=== PATIENT | male | born 1955 | race Caucasian/White ===

== ENCOUNTER → 2024-03-02 | Outpatient (CLI) | payer BC ==
--- NOTE | 2024-03-02 12:57 | XR ---
EXAMINATION TYPE: XR chest 2V DATE OF EXAM: 03/02/2024 12:53 PM COMPARISON: None CLINICAL INDICATION: Male, 68 years old with history of N17.9,E83.52, I10, D68.51; [facility] TECHNIQUE: XR chest 2V Frontal and lateral views of the chest. FINDINGS: Lungs/Pleura: There is no evidence of pleural effusion, focal consolidation, or pneumothorax. Pulmonary vascularity: Unremarkable. Heart/mediastinum: Cardiomediastinal silhouette is unremarkable. Musculoskeletal: No acute osseous pathology. IMPRESSION: No acute cardiopulmonary disease/process. [facility], , 03/02/2024 12:55 PM
== END | disposition home or self-care (01) ==
LOC: RADXRMAIN 12:36
PROVIDERS: ATTEND Internal Medicine Nephrology
DX: N17.9 Acute kidney failure, unspecified (principal); E83.52 Hypercalcemia; D68.51 Activated protein C resistance; I10 Essential (primary) hypertension
CPT/HCPCS: 71046

== ENCOUNTER → 2024-03-24 | Outpatient (CLI) | payer BC ==
--- NOTE | 2024-03-24 09:57 | US ---
EXAMINATION TYPE: US kidneys/renal and bladder DATE OF EXAM: 03/24/2024 COMPARISON: NONE CLINICAL INDICATION: Male, 68 years old with history of R37.9 HYPERGLYCEMIA, UNSPECIFIED; Hyperglycem ia TECHNIQUE: Grayscale imaging of the bilateral kidneys and urinary bladder: FINDINGS: EXAM MEASUREMENTS: Right Kidney: 12.9x4.8x6.4 cm Left Kidney: 12.5x5.2x5.6 cm Right Kidney: No hydronephrosis or masses seen Left Kidney: No hydronephrosis or masses seen Bladder: wnl Bilateral Jets seen: Yes IMPRESSION: No hydronephrosis. No specific abnormality seen. [facility], Workstation: [id number], 03/24/2024 9:54 AM
--- NOTE | 2024-03-24 10:28 | CT ---
EXAMINATION TYPE: CT chest wo con DATE OF EXAM: 03/24/2024 COMPARISON: Radiograph 03/02/2024 HISTORY: 68-year-old male R37.9, Coughing up blood TECHNIQUE: Contiguous axial scanning of the chest without IV contrast. Coronal/sagittal reconstructio ns performed. CT DLP: 589mGycm. Automatic exposure control utilized for a dose reduction. FINDINGS: Heart is normal size with trace pericardial fluid. Scattered three-vessel coronary artery calcificat ions are present. Aorta normal caliber with conventional arch vessel branching anatomy. No thoracic lymphadenopathy by CT size criteria. Breathing motion artifact throughout the lungs. No consolidation or pleural effusion is seen. Central airways are clear. No consolidation or pleural effusion. Visualized upper abdomen shows pronounced enlargement of the spleen but only partially visualized. Un derlying gallstones measuring up to 7 mm. There may be mild gallbladder wall thickening with increasi ng weight increased fluid status. Suggestion of mild anasarca change. Bones: Moderate degenerative disc disease lower thoracic spine with some anterior bridging endplate s pondylosis. IMPRESSION: 1. Breathing motion artifact. No acute pulmonary process seen. 2. Visualized upper abdomen with pronounced splenomegaly. Clinically correlate. 3. Cholelithiasis. 4. There appears to be mild anasarca change. Correlate with fluid status/third spacing. [facility], , 03/24/2024 10:26 AM
== END | disposition home or self-care (01) ==
LOC: RADUSWWP 08:07
PROVIDERS: ATTEND Internal Medicine Hematology & Oncology
DX: R73.9 Hyperglycemia, unspecified (principal); D64.9 Anemia, unspecified; D69.6 Thrombocytopenia, unspecified; I80.10 Phlebitis and thrombophlebitis of unspecified femoral vein; E78.5 Hyperlipidemia, unspecified; R16.1 Splenomegaly, not elsewhere classified; K80.20 Calculus of gallbladder without cholecystitis without obstruction; R60.1 Generalized edema
CPT/HCPCS: 71250; 76770

== ENCOUNTER → 2024-04-21 | Outpatient (CLI) | payer BC ==
[2024-04-21 10:56] LABS: African American GFR (CKD) 64 (>60 ml/min/1.73 sqM); Blood Urea Nitrogen 17 mg/dL (9-20); Non-African American GFR(CKD) 55 (>60 ml/min/1.73 sqM)
--- NOTE | 2024-04-21 12:51 | CT ---
EXAMINATION TYPE: CT abdomen pelvis w con DATE OF EXAM: 04/21/2024 12:20 PM COMPARISON: None CLINICAL INDICATION: Male, 68 years old with history of R13.10 DYSPHAGIA R16.1 SPLENOMEGALY; Splenome avila, anemia. No contrast filtration visible on 3 min, did do additional delay. TECHNIQUE: Axial CT abdomen pelvis w con;Sagittal and coronal reformats were created on a separate w orkstation. Contrast used:80 mL of Isovue 300 with IV Contrast, (none if empty) Oral contrast used: with Oral Contrast (none if empty) CT DLP: 2859.90 mGycm, Automated exposure control for dose reduction was used. FINDINGS: LOWER CHEST: Unremarkable ABDOMEN LIVER: Unremarkable GALLBLADDER AND BILE DUCTS: Layering increased densities within the lumen consistent with gallstones are present. PANCREAS: Unremarkable. SPLEEN: Markedly enlarged for size measuring up to 26.2 cm. ADRENAL GLANDS: Unremarkable. KIDNEYS AND URETERS: No evidence of hydronephrosis or renal calculus. The ureters are unremarkable. PELVIS BLADDER: Circumferential wall prominence of the urinary bladder. REPRODUCTIVE: Unremarkable. ABDOMEN & PELVIS STOMACH AND BOWEL: No evidence of bowel obstruction. PERITONEUM/RETROPERITONEUM: No evidence of pneumoperitoneum or free fluid. VASCULATURE: Mild atherosclerotic calcifications are present throughout the abdominal aorta and its b ranches. No evidence of aortic aneurysm. MUSCULOSKELETAL: No acute osseous abnormalities. Moderate disc degeneration changes are present throu ghout the thoracolumbar spine. LYMPH NODES: Scattered prominent lymph nodes including one near the left kidney is anterior left of t he aorta measuring 15 mm in short axis. Additionally gastrohepatic ligament measuring up to 15 mm. SOFT TISSUE/ABDOMINAL WALL: Fat-containing umbilical hernia. Fatty changes to the inguinal canals. IMPRESSION: 1. Markedly enlarged spleen measuring up to 26.2 cm. Additionally there is a few scattered retroperi toneal lymph nodes which are enlarged. Further workup recommended to exclude underlying malignancy/ly mphoma versus other. 2. Cholelithiasis. 3. Fat-containing umbilical hernia. 4. Circumferential wall prominence within the bladder correlate with urinalysis for cystitis. [facility], , 04/21/2024 12:49 PM
== END | disposition home or self-care (01) ==
LOC: RADCTMAIN 09:47
PROVIDERS: ATTEND Internal Medicine Hematology & Oncology
DX: K80.20 Calculus of gallbladder without cholecystitis without obstruction (principal); R16.1 Splenomegaly, not elsewhere classified; K42.9 Umbilical hernia without obstruction or gangrene; N30.80 Other cystitis without hematuria; D69.6 Thrombocytopenia, unspecified; I80.10 Phlebitis and thrombophlebitis of unspecified femoral vein; E78.5 Hyperlipidemia, unspecified; Z71.3 Dietary counseling and surveillance
CPT/HCPCS: 82565; 84520; 74177; 36415; Q9967

== ENCOUNTER 2024-05-11 11:01 | Day surgery (SDC) | payer BC ==
[~2024-05-11 11:01] MED LIST: LIDOCAINE 1% (10MG/ML) FOR IV START INTRADERMA PRN
[2024-05-11 11:32] VITALS: RESP 16; TEMP 98.5
[2024-05-11] MEDS: IV FLUID CONTINUATION 1,000 ML IV ONE (11:39)
[2024-05-11] MEDS: LACTATED RINGERS 1,000 ML IV SCH (11:42)
[2024-05-11] MEDS ORDERED: PHENYLEPHRINE 10 MG/ML VIAL ONE (12:04)
[2024-05-11] MEDS ORDERED: fentaNYL (PF) 50 MCG/ML 2 ML AMP ONE (12:04)
[2024-05-11] MEDS ORDERED: PROPOFOL 10 MG/ML 20 ML VIAL IV ONE (12:04)
[2024-05-11] MEDS: LIDOCAINE 2% INJ 20 MG/ML SQ ONE ×2 (12:07→12:16)
[2024-05-11 12:42] LABS: HCT 37.5 % (39.0-53.0); HGB 11.8 gm/dL (13.0-17.5); MCH 28.9 pg (25.0-35.0); MCHC 31.6 g/dL (31.0-37.0); MCV 91.5 fL (80.0-100.0); RDW 15.9 % (11.5-15.5); Reticulocyte % 2.6 % (0.5-2.0)
[2024-05-11 13:07] VITALS: BP 108/52; PULSE 65
[2024-05-11 13:13] LABS: Platelet Count 80 k/uL (150-450)
[2024-05-11 13:19] LABS: Neutrophils % (M) 27 %; Nucleated Red Blood Cells 0 /100 WBC (0-0); Total Cells Counted 200
--- NOTE | 2024-05-11 19:02 | OP ---
OPERATIVE REPORT DATE OF SERVICE : 05/11/2024 PROCEDURE: Bone marrow aspirate and biopsy. INDICATIONS: Hypercalcemia, splenomegaly and borderline-enlarged retroperitoneal nodes, rule out underlying lymphoproliferative neoplasm. DESCRIPTION OF PROCEDURE: After obtaining consent from the patient, the procedure was performed in the endoscopy suite under general sedation performed by anesthesia team. The patient was put in the left lateral decubital position. The right posterior superior iliac crest was localized, cleansed; it was prepped with ChloraPrep. All sterile procedures were followed. 2 mL of 2% xylocaine was used for local anesthetic. Jamshidi needle was inserted. About 15 mL of aspirate and 1 cm core biopsy was obtained without any difficulties. Pressure applied afterwards. There was negligible blood loss. The patient tolerated the procedure very well without any immediate complications. MMODL / IJN: [id number] /
== END 2024-05-11 13:13 | disposition home or self-care (01) ==
LOC: OR 11:01
PROVIDERS: ATTEND Internal Medicine Hematology & Oncology
DX: E83.52 Hypercalcemia (principal); R16.1 Splenomegaly, not elsewhere classified; D69.6 Thrombocytopenia, unspecified; D64.9 Anemia, unspecified; M12.9 Arthropathy, unspecified; K21.9 Gastro-esophageal reflux disease without esophagitis; I80.10 Phlebitis and thrombophlebitis of unspecified femoral vein; I10 Essential (primary) hypertension; E78.5 Hyperlipidemia, unspecified; Z71.3 Dietary counseling and surveillance; Z79.82 Long term (current) use of aspirin; Z79.02 Long term (current) use of antithrombotics/antiplatelets; Z79.899 Other long term (current) drug therapy
CPT/HCPCS: 85025; 85045; 38222; J3010; J2704; J2371; J2003

== ENCOUNTER → 2024-06-26 | Outpatient (CLI) | payer BC ==
--- NOTE | 2024-06-27 17:55 | PE ---
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 Images are reviewed on the computer in the coronal, axi al, and sagittal planes. Reconstructed rotating images are created on independent workstation and re viewed on the computer. A non-contrast CT is performed in conjunction with the PET scan. Glucose le kirti 93 mg/dL CT DLP: 929.16 mGycm, Automated exposure control for dose reduction was used. COMPARISON: CT 04/21/2024, 03/24/2024, PET/CT None, MRI: None FINDINGS: Mediastinal SUV mean is 1.7. Hepatic parenchyma SUV mean is 2.4. SKULL BASE AND NECK: No suspicious radiotracer activity. CHEST, MEDIASTINUM, AND HILAR REGION: No suspicious radiotracer activity. ABDOMEN AND PELVIS: Enlarged spleen measuring 16.1 cm in AP dimension. Previously 19.7 cm in AP dimension. Demonstrates a maximum SUV of 1.9 which is at background levels. Stable size gastrohepatic lymph node measuring 1.5 cm with a maximum SUV of 2.3. This is at backgroun d levels. Stable size left periaortic lymph node measuring 1.4 cm short axis with a max SUV of 2.9. Previously measured up to 1.5 cm. This is near background levels. MUSCULOSKELETAL STRUCTURES: No suspicious radiotracer activity. OTHER CT: Left aphakia. Bilateral carotid bulb calcifications. Dilated main pulmonary artery measurin g up to 3.6 cm suggesting pulmonary arterial hypertension. Small coronary calcifications. Cardiomegal y. Cholelithiasis. Elevation the right hemidiaphragm. Trace left pleural effusion. Mild atherosclero tic calcification of the aorta and its branches. Dilated splenic vein redemonstrated. Small umbilical hernia containing fat and small mesenteric vessels. Multilevel degenerative disc disease. Mild diffu se anasarca. IMPRESSION: 1. Decreased spleen size with radiotracer activity above background levels suggesting positive respo nse to treatment. 2. Couple of stable gastrohepatic/periaortic lymph nodes from prior CT without FDG activity above ba ckground. 3. No other suspicious regions of FDG activity. [facility], , 06/27/2024 5:52 PM
== END | disposition home or self-care (01) ==
LOC: RADPETMAIN 11:25
PROVIDERS: ATTEND Internal Medicine Hematology & Oncology
DX: C83.07 Small cell B-cell lymphoma, spleen (principal); K42.9 Umbilical hernia without obstruction or gangrene; I51.7 Cardiomegaly; I70.0 Atherosclerosis of aorta; J90 Pleural effusion, not elsewhere classified
CPT/HCPCS: 78815; A9552